=== PATIENT | female | born 1940 | race Caucasian/White ===

== ENCOUNTER → 2017-09-28 | Outpatient (CLI) | payer MEDICARE, OTHER ==
--- NOTE | 2017-09-28 14:00 | RAD ---
EXAM: Chest and left ribs, 3 views. HISTORY: Pain. Fall. COMPARISON: 07/12/2015 FINDINGS: A frontal view of the chest and 3 views of the left ribs are obtained. There is no infiltrate, pleural effusion or pneumothorax. The cardiac silhouette is mildly enlarged. There are multiple chronic appearing left rib fractures. No acute fracture is seen. IMPRESSION: 1. No acute pulmonary finding. 2. Prominent cardiac silhouette. 3. Multiple chronic appearing left rib fractures. No convincing acute fracture is seen. Electronically signed by: Amina Brandon MD (09/28/2017 1:56 PM) [place] [id number]
== END | disposition home or self-care (01) ==
LOC: PMG 11:46
PROVIDERS: ATTEND Physician Assistant Medical
DX: I51.7 Cardiomegaly (principal); R07.81 Pleurodynia
CPT/HCPCS: 71101

== ENCOUNTER → 2019-09-03 | Outpatient (CLI) | payer MEDICARE, OTHER ==
--- NOTE | 2019-09-03 11:55 | RAD ---
Multiple views of the left ribs as well as AP view of the chest were obtained. History: Left-sided rib pain Comparison: none There is a minimally angulated fracture of the left lateral seventh rib. No pneumothorax is seen. The heart is enlarged. Electronically signed by: Ramírez Marquez MD (09/03/2019 11:52 AM) [id number]
== END ==
LOC: PMG 09:58
PROVIDERS: ATTEND Physician Assistant Medical
DX: S22.32XA Fracture of one rib, left side, initial encounter for closed fracture (principal); I51.7 Cardiomegaly; X58.XXXA Exposure to other specified factors, initial encounter; Y93.89 Activity, other specified; Y92.89 Other specified places as the place of occurrence of the external cause; Y99.8 Other external cause status
CPT/HCPCS: 71101